=== PATIENT | female | born 1965 | race American Indian/Alaskan Native ===

== ENCOUNTER 2018-06-14 12:15 | Outpatient (CLI) | payer OTHER ==
[2018-06-14] MEDS ORDERED: PROVENTIL IH ONE (12:58)
== END 2018-06-14 12:16 | disposition home or self-care (01) ==
LOC: PF 12:15
PROVIDERS: ATTEND Internal Medicine
DX: J44.9 Chronic obstructive pulmonary disease, unspecified (principal)
CPT/HCPCS: 94060; 94640